=== PATIENT | male | born 1995 | race Caucasian/White ===

== ENCOUNTER 2020-08-12 13:03 | Emergency (ER) | payer BC, OTHER ==
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
== END 2020-08-12 14:02 | disposition home or self-care (01) ==
LOC: LB.ED 13:03
DX: S01.111A Laceration without foreign body of right eyelid and periocular area, initial encounter (principal); Z87.891 Personal history of nicotine dependence; W22.8XXA Striking against or struck by other objects, initial encounter
CPT/HCPCS: 12011; 99282; 99282-25